=== PATIENT | male | born 1970 | race Caucasian/White ===

== ENCOUNTER 2018-02-22 11:11 | Emergency (ER) | payer OTHER ==
[~2018-02-22] VITALS: Ht 177.8 cm; Wt 83.9 kg
--- NOTE | ~2018-02-22 | EKG ---
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
[2018-02-22] MEDS ORDERED: PREDNISONE50 MG PO (13:56)
[2018-02-22] MEDS ORDERED: CYCLOBENZAPRINE10 MG PO (13:56)
== END 2018-02-22 14:11 | disposition home or self-care (01) ==
LOC: ED 11:11
DX: M54.12 Radiculopathy, cervical region (principal); F17.200 Nicotine dependence, unspecified, uncomplicated